=== PATIENT | female | born 1960 | race Hispanic/Latino ===

== ENCOUNTER → 2017-02-06 | Outpatient (CLI) | payer BC, OTHER ==
--- NOTE | 2017-02-06 11:42 | MRI ---
EXAM DESCRIPTION: Lumbar Spine w/o Contrast CLINICAL HISTORY: LOW BACK PAIN COMPARISON: None Available. TECHNIQUE: MRI of the lumbar spine is performed according to our usual protocol with axial and sagittal multi sequence imaging. FINDINGS: Normal alignment of the lumbar spine with preservation of vertebral and disc height with minimal disc narrowing at L1-2 and L2-3 with very little disc desiccation is noted. The conus is positioned at T12-L1 with no evidence of intradural or intramedullary mass. Normal tapering of the thecal sac extending into the lower lumbar spine is apparent. Marrow signal is normal without destructive process or significant endplate reactive edema. The paraspinous and retroperitoneal structures are unremarkable. Incidental note of a tiny lipoma in the filum terminale without mass effect. At the L2 and L3 levels is present without malposition or evidence of tethering of the cord. L1-2: Minimal annular prominence that is very slightly left-sided consistent with a minimal left-sided disc protrusion at L1-2 but without significant neural compression or compromise of the thecal sac lateral recess or neural foramina. Mild facet arthropathy. L2-3: the disc is well hydrated. There is no loss of height. There is no bulging. The facets are unremarkable with no significant hypertrophy. There is no stenosis or impingement. L3-4: the disc is well hydrated. There is no loss of height. There is no bulging. The facets are unremarkable with no significant hypertrophy. There is no stenosis or impingement. L4-5: Tiny amount of annular prominence with bilateral right greater than left facet arthropathy with normal alignment and very mild narrowing of the L4 neural foramina bilaterally. No lateralizing herniation seen. L5-S1: the disc is well hydrated. There is no loss of height. There is no bulging. The facets are unremarkable with no significant hypertrophy. There is no stenosis or impingement. IMPRESSION: 1. Incidental note of a small approximate 2 mm diameter lipoma involving the filum terminale at the L2 and L3 levels without significant mass effect or tethering of the cord or conus or displacement of nerve roots. 2. Mild annular prominence and minimal left-sided disc protrusion at L1-2 without significant neural compression. 3. Mild annular bulge at L4-5 with modest facet arthropathy and mild narrowing of both L4-5 neural foramina. No definite neural compression or stenosis present Electronically signed by: Fabio Heredia MD 02/06/2017 11:43 AM CDT
== END | disposition home or self-care (01) ==
LOC: MRI 07:01
PROVIDERS: ATTEND Family Medicine
DX: M54.16 Radiculopathy, lumbar region (principal)

== ENCOUNTER → 2017-09-05 | Outpatient (CLI) | payer OTHER | END | disposition home or self-care (01) | LOC: MAMMO 14:08 | PROVIDERS: ATTEND Family Medicine | DX: Z12.31 Encounter for screening mammogram for malignant neoplasm of breast (principal) | CPT/HCPCS: 77063; G0202 ==

== ENCOUNTER → 2018-10-29 | Outpatient (CLI) | payer OTHER ==
--- NOTE | 2018-10-29 12:55 | MAM ---
EXAM DESCRIPTION: 3D Screening BILATERAL : Digital Mammography. CLINICAL HISTORY: 58 years Female ANNUAL SCREENING . No complaints. No personal or family history of breast cancer. Childbirth. Postmenopausal 22 years. Currently on HRT pellets. Lifetime risk of developing breast cancer (Tyrer-Cuzick model)(%): 6.0. COMPARISON: Bilateral screening digital breast tomosynthesis 09/05/2017. TECHNIQUE: Bilateral CC and MLO projection full-field images, digital tomosynthesis mammographic technique. Bilateral digital 2-D full-field MLO images. CAD not available for tomosynthesis or 2-D images. FINDINGS: The breast parenchymal density pattern is: Almost entirely fatty. No skin thickening or nipple retraction. Typical appearing right axillary lymph nodes. No new focal, stellate mass or density, focal asymmetry , and no suspicious microcalcifications bilaterally. IMPRESSION: Benign exam. BIRAD CATEGORY: 2 BENIGN FINDINGS. RECOMMENDATIONS: FOLLOW UP: Routine digital bilateral mammographic screening, one year interval from May 2019. Written communication explaining the IMPRESSION and follow-up, will be mailed to the patient and referring health care provider. According to the [employer], yearly mammograms are recommended starting at age 40 and continuing as long as a woman is in good health. Any breast change noted on a breast self-exam should be reported promptly to the patient's healthcare provider. Breast MRI is recommended for women with an approximately 20-25% or greater lifetime risk of breast cancer, including women with a strong family history of breast or ovarian cancer and women who have been treated for Hodgkin's disease. A negative mammographic report should not delay tissue diagnosis in patients with significant clinical history or physical findings. Extremely dense breast tissue limits the sensitivity of digital mammography. Electronically signed by: Job Delvalle MD 10/29/2018 12:52 PM [facility]
== END ==
LOC: MAMMO 09:07
PROVIDERS: ATTEND Family Medicine
DX: Z12.31 Encounter for screening mammogram for malignant neoplasm of breast (principal)

== ENCOUNTER → 2019-06-06 | Outpatient (CLI) | payer OTHER | LOC: GMALS 11:48 | PROVIDERS: ATTEND Nurse Practitioner Acute Care | DX: D51.8 Other vitamin B12 deficiency anemias (principal); L65.9 Nonscarring hair loss, unspecified ==

== ENCOUNTER → 2020-06-14 | Outpatient (CLI) | payer BC | LOC: GMA MATASK 14:02 | PROVIDERS: ATTEND Family Medicine | DX: M25.562 Pain in left knee (principal) ==